=== PATIENT | male | born 2000 | race Two or more races ===

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

== ENCOUNTER 2024-03-18 16:32 | Emergency (ER) | payer BC, MEDICAID ==
[~2024-03-18] VITALS: Ht 167.6 cm; Wt 76.2 kg
[2024-03-18] MEDS ORDERED: KETOROLAC TROMETHAMINE 10 MG TABLET PO PRN (17:30)
[2024-03-18 17:48] LABS: BASOPHILS % (AUTO) 0.3 % (0.0-2.0); EOSINOPHILS # (AUTO) 1.8 K/uL (0.0-0.7); EOSINOPHILS % (AUTO) 16.5 % (0.0-6.0); HEMATOCRIT 43 % (39-51); HEMOGLOBIN 14.6 g/dL (13.5-17.5); LYMPHOCYTES # (AUTO) 1.7 K/uL (0.8-4.8); LYMPHOCYTES % (AUTO) 15.9 % (20.0-44.0); MEAN CORPUSCULAR HEMOGLOBIN 29 PG (26.0-33.0); MEAN CORPUSCULAR HGB CONC 34 g/dl (31.0-36.0); MEAN CORPUSCULAR VOLUME 85 fL (80-96); MONOCYTES # (AUTO) 0.8 K/uL (0.1-1.30); NEUTROPHILS # (AUTO) 6.5 K/uL (1.8-8.9); NEUTROPHILS % (AUTO) 60.3 % (43.0-81.0); PLATELET COUNT (AUTO) 221 K/uL (150-450); RED BLOOD CELL COUNT(AUTO) 5.06 MIL/uL (4.5-6.0); RED CELL DISTRIBUTION WIDTH 13.4 % (11.5-15.0); WHITE BLOOD COUNT (AUTO) 10.8 K/uL (4.3-11.0)
[2024-03-18] MEDS ORDERED: METOCLOPRAMIDE HCL 10 MG TABLET ONE (17:55)
[2024-03-18] MEDS ORDERED: DICYCLOMINE HCL 10 MG CAPSULE PO ONE (17:55)
[2024-03-18] MEDS: DICYCLOMINE HCL 10 MG CAPSULE PO ONE (18:02)
[2024-03-18] MEDS: METOCLOPRAMIDE HCL 10 MG TABLET PO ONE (18:02)
[2024-03-18 18:05] LABS: POTASSIUM 4.7 mmol/L (3.5-5.1)
[2024-03-18 18:11] LABS: ALBUMIN 3.5 g/dL (3.4-5.0); BILIRUBIN,DIRECT 0.1 mg/dL (0.0-0.2); BILIRUBIN,TOTAL 0.4 mg/dL (0.2-1.0); TOTAL PROTEIN, SERUM 7.2 g/dL (6.4-8.2)
[2024-03-18] MEDS ORDERED: METO-295 PO (18:58)
[2024-03-18] MEDS ORDERED: KETO10TA2 PO (18:58)
[2024-03-18] MEDS ORDERED: DICY20TA11 PO (18:58)
[2024-03-18 19:05] VITALS: BP 133/87; TEMP 209.7; O2SAT 100
[2024-03-18 19:48] LABS: ANISOCYTOSIS 1+; EOSINOPHILS % (MANUAL) 14 % (0-4); LYMPHOCYTES % (MANUAL) 16 % (16-48); MONOCYTES % (MANUAL) 4 % (0-11.0); NEUTROPHILS % (MANUAL) 66 (42-76); PLATELET ESTIMATE ADEQUATE
== END 2024-03-18 19:06 | disposition home or self-care (01) ==
LOC: ER 16:35
DX: R10.33 Periumbilical pain (principal); Z79.899 Other long term (current) drug therapy
CPT/HCPCS: 99284; 74176; 85025; 80048; 83690; 80076; 36415; 85007; J8597